=== PATIENT | female | born 1980 | race Caucasian/White ===

== ENCOUNTER 2019-12-17 16:30 | Day surgery (SDC) | payer OTHER ==
[~2019-12-17] VITALS: Ht 154.9 cm; Wt 47.1 kg
[~2019-12-17 16:30] MED LIST: LIDOCAINE 1% SDV 30ML VIAL As Ordered ONE
[2019-12-17] MEDS ORDERED: propofoL 200 MG/20 ML VIAL As Ordered ONE (16:52)
[2019-12-17] MEDS ORDERED: LIDOCAINE 2% 100MG/5ML SDV (FOR ANES.) As Ordered ONE (16:52)
[2019-12-17] MEDS ORDERED: MIDAZOLAM INJ 2MG/2ML VIAL (J2250 PER 1MG) As Ordered ONE (16:52)
[2019-12-17] MEDS ORDERED: fentaNYL 100 MCG/2 ML INJECTION (J3010) As Ordered ONE (16:52)
[2019-12-17] MEDS ORDERED: ACETAMINOPHEN *IV* 1,000 MG IV ONE ×2 (17:00)
[2019-12-17 17:26] LABS: HEMATOCRIT 39.8 % (36.0-47.0); HEMOGLOBIN 13.6 g/dl (12.0-15.5); MEAN CORPUSCULAR HEMOGLOBIN 30.2 pg (27.0-33.0); MEAN CORPUSCULAR HGB CONC 34.2 g/dl (32.0-36.5); MEAN CORPUSCULAR VOLUME 88.4 fl (80.0-96.0); PLATELET COUNT, AUTOMATED 325 10^3/uL (150-450); WHITE BLOOD COUNT 7.1 10^3/uL (4.0-10.0)
[2019-12-17] MEDS ORDERED: DOXYCYCLINE HYCLATE 100 MG in D5W MINI-BAG PLUS 100 ML IV ONE ×2 (17:30→18:30)
[2019-12-17 17:50] LABS: ALBUMIN 3.9 GM/DL (3.2-5.2); ALT/SGPT 13 U/L (12-78); BILIRUBIN,TOTAL 0.6 MG/DL (0.2-1.0); BLOOD UREA NITROGEN 7 MG/DL (7-18); CALCIUM LEVEL 8.8 MG/DL (8.5-10.1); CARBON DIOXIDE LEVEL 25 MEQ/L (21-32); CHLORIDE LEVEL 107 MEQ/L (98-107); CREATININE FOR GFR 0.53 MG/DL (0.55-1.30); GLOMERULAR FILTRATION RATE > 60.0 (>60); GLUCOSE, FASTING 88 MG/DL (70-100); POTASSIUM SERUM 3.6 MEQ/L (3.5-5.1); SODIUM LEVEL 136 MEQ/L (136-145); TOTAL PROTEIN 7.4 GM/DL (6.4-8.2)
[2019-12-17] MEDS ORDERED: ONDANSETRON 4MG/2ML VIAL As Ordered ONE (17:51)
[2019-12-17] MEDS ORDERED: dexameTHASONE 4 MG/ML 1ML VIAL (J1100 PER 1MG) As Ordered ONE (17:51)
[2019-12-17] MEDS ORDERED: ACETAMINOPHEN 1000MG 100ML IV BTL (OFIRMEV) (J0131 PER 10MG) As Ordered ONE (17:52)
[2019-12-17] MEDS ORDERED: SILVER NITRATE APPLICATOR As Ordered ONE ×2 (18:02→18:16)
--- NOTE | 2019-12-17 18:48 | ROOPDOC ---
[facility] Report Of Operation Report of Operation DATE OF PROCEDURE: 12/17/19 PREPROCEDURE DIAGNOSES: missed POSTPROCEDURE DIAGNOSES: missed PROCEDURE: suction dilation and curettage SURGEON: Wang Marcus DO METHODS SPECIALIST: none ANESTHESIA: LMA ESTIMATED BLOOD LOSS: Approximately 100 mL. COMPLICATIONS: none. REMARKS: none PROCEDURE NOTE: The risks, benefits, and alternatives of the procedure were discussed and written consent was obtained. The patient was taken to the OR where she underwent anesthesia with an LMA. She was positioned in low lithotomy in the yellow fins with her arms out. The vagina and perineum were prepped and draped in a sterile fashion. A final time out was performed. An exam under anesthesia was performed and the uterus was noted to be 7wk size, anteverted, and mobile. No adenxal masses were palpable. A weighted speculum was placed in the vagina and the anterior lip of the cervix was grasped with a single tooth tenaculum. The cervix was noted to be friable. The cervix was then dilated to 18F with hanks dilators. An 8mm suction curette was tested and the suction was in the green zone. The curette was then introduced to the fundus and via 360 deg rotation in multiple passes suction was performed until no further debris were noted in the tubing. A non-serated endometrial curette was then passed 360 deg to palpate if any further suction was needed. Gentle cry was palpated 360 deg with the exception of the right lower uterus where a fibroid could be palpated. The bleeding from the uterus was noted to be scant. On exam the uterus was firm and 5 weeks size. The tenaculum was removed and the puncture site hemostatic with silver nitrate. The speculum was removed. The bladder was drained. The sponge, lap and needle counts were correct x2. There were no complications. The patient was transferred to the PACU in stable condition. WANG MARCUS DO Dec 17, 2019 18:48
[2019-12-17 19:50] VITALS: BP 103/70
--- NOTE | 2019-12-17 19:58 | IPNPDOC ---
Progress Note Date of Service: Dec 17, 2019 Day#: 0 Progress Note To whom it may concern; Leanne Merchant was admitted to the hospital on [id number] for a procedure and should receive 7 days of convalescent leave starting [id number]. If you have any questions please contact me at [phone]. Sincerely, Dr. Wang Joel DO, [facility], , [facility] [address] [place] [address] VS, I&O, 24H, [facility] Vital Signs/I&O Vital Signs Date Time Temp Pulse Resp B/P (MAP) Pulse Ox O2 Delivery O2 Flow Rate FiO2 12/17/19 19:05 98.5 84 18 106/66 (79) 100 Room Air Laboratory Data 24H LABS Laboratory Tests 2 12/17/19 17:05: Nucleated Red Blood Cells % (auto) 0.0, Anion Gap 4L, Glomerular Filtration Rate > 60.0, Calcium Level 8.8, Total Bilirubin 0.6, Aspartate Amino Transf (AST/SGOT) 11, Alanine Aminotransferase (ALT/SGPT) 13, Alkaline Phosphatase 53, Total Protein 7.4, Albumin 3.9, Albumin/Globulin Ratio 1.1L CBC/BMP Laboratory Tests 12/17/19 17:05 Microbiology Microbiology 12/17/19 Respiratory Virus Panel (PCR) (MARY) - Final, Complete WANG JOEL DO Dec 17, 2019 19:58
== END 2019-12-17 20:02 | disposition home or self-care (01) ==
LOC: M SDC 16:30
PROVIDERS: ATTEND Obstetrics & Gynecology
DX: O02.1 Missed abortion (principal)
CPT/HCPCS: 36415; 59820; 80053; 85027; 86850; 86900; 86901; 87486; 87581; 87633; 87798; 88305; J0131; J1100; J2250; J2405; J3010

== ENCOUNTER → 2020-06-09 | Outpatient (CLI) | payer OTHER ==
[~2020-06-09] MED LIST changes: +ISOVUE-370 76% 100ML VIAL As Ordered ONE; -LIDOCAINE 1% SDV 30ML VIAL As Ordered ONE
--- NOTE | 2020-06-09 12:45 | ROOPDOC ---
[facility] Report Of Operation Report of Operation DATE OF PROCEDURE: 06/09/20 PRE-PROCEDURE DIAGNOSIS: 1) Infertility POST-PROCEDURE DIAGNOSIS: Same PHYSICIAN PERFORMING PROCEDURE: Wang Marcus DO CONSENT: The HSG procedure, indication, risks, and benefits were discussed with the patient and informed written consent was obtained. PATIENT COUNSELLED IN REGARDS TO HSG RISKS AND BENEFITS TO INCLUDE INFECTION, DISRUPTION OF , BLEEDING, AND PAIN. FINAL TIME OUT PERFORMED IMMEDIATELY PRIOR TO HSG. PROCEDURE: STERILE SPECULUM PLACED CERVIX CLEANSED WITH BETADINE TRIPLE SWAB TENACULUM UTILIZED (YES) HSG CATHETER PASSED, BALLOON INFLATED APPROX 10mL OF ISOVUE CONTRAST WAS INFUSED AP AND OBLIQUE IMAGES WERE OBTAINED PRELIMINARY FINDINGS: 1) UTERINE FINDINGS NORMAL 2) LEFT FALLOPIAN TUBE PATENT 3) RIGHT FALLOPIAN TUBE PATENT PATIENT TOLERATED THE PROCEDURE WELL DISCHARGED TO HOME WITH PRECAUTIONS ANTIBIOTICS RECOMMENDED: NO COMPLICATIONS: NONE DISCHARGE INSTRUCTIONS GIVEN PATIENT TO F/U WITH ORDERING PROVIDER FOR FINAL IMPRESSION AND CLINICAL CORRELAT ION APPROX TIME: 10 MIN COUNSELLING 20 MIN IN PROCEDURE WANG MARCUS DO Jun 09, 2020 12:45
--- NOTE | 2020-06-09 13:53 | REP ---
INDICATION: INFERTILITY. COMPARISON: None. TECHNIQUE: The endometrium was cannulated and contrast was injected by the attending medical accounts receivable specialist Dr. Joel. Fluoroscopic spot films were acquired by DESTINEY Martin, under the direct supervision of Dr. Hernandez. Images reviewed prior with Dr. Hernandez to dictation. FINDINGS: Fluoroscopy spot radiographs document filling of a normal endometrial cavity. There is normal isthmic and ampullary fallopian tube opacification, and bilateral tubal patency was documented. IMPRESSION: Normal hysterosalpingogram with bilateral tubal patency documented. 0.6 minutes of fluoroscopy time was utilized for this procedure. Some fluoroscopic images are performed with last image hold technology. These images require no additional radiation. <Electronically signed by Salima Gomez > 06/09/20 [id number] <Electronically signed by Janes Hernandez > 06/09/20 [id number]
== END ==
LOC: M RADPRO 11:26
PROVIDERS: ATTEND Obstetrics & Gynecology
DX: N97.9 Female infertility, unspecified (principal)
CPT/HCPCS: 58340; 74740; Q9967

== ENCOUNTER → 2020-08-11 | Outpatient (REF) | LOC: M LAB REF 11:28 | PROVIDERS: ATTEND Obstetrics & Gynecology Reproductive Endocrinology | DX: N97.9 Female infertility, unspecified (principal) ==

== ENCOUNTER → 2020-09-26 | Outpatient (CLI) | payer OTHER ==
[~2020-09-26] MED LIST changes: -ISOVUE-370 76% 100ML VIAL As Ordered ONE; +MUCI120T PO
[2020-09-26 08:21] LABS: HCG, SERUM QUANTITATIVE < 1.0 MIU/ML; THYROID STIMULATING HORMONE 0.392 uIU/ML (0.358-3.740)
[2020-09-26 09:34] LABS: ESTRADIOL 22.6 PG/ML; LUTEINIZING HORMONE 5.4 mIU/mL
[2020-09-26 09:35] LABS: FOLLICLE STIMULATING HORMONE 12.4 mIU/mL
== END ==
LOC: M LAB 07:23
PROVIDERS: ATTEND Obstetrics & Gynecology Reproductive Endocrinology
DX: E28.9 Ovarian dysfunction, unspecified (principal)

== ENCOUNTER → 2020-10-03 | Outpatient (CLI) | payer OTHER ==
[2020-10-03 07:29] LABS: ESTRADIOL 70.4 PG/ML; LUTEINIZING HORMONE 5.1 mIU/mL; PROGESTERONE 1.22 NG/ML
== END ==
LOC: M LAB 06:12
PROVIDERS: ATTEND Obstetrics & Gynecology Reproductive Endocrinology
DX: E28.9 Ovarian dysfunction, unspecified (principal)

== ENCOUNTER → 2020-10-14 | Outpatient (CLI) | payer OTHER ==
[2020-10-14 10:38] LABS: ESTRADIOL 744.4 PG/ML; PROGESTERONE 17.23 NG/ML
== END ==
LOC: M LAB 06:39
PROVIDERS: ATTEND Obstetrics & Gynecology Reproductive Endocrinology
DX: Z31.49 Encounter for other procreative investigation and testing (principal)

== ENCOUNTER → 2020-10-21 | Outpatient (CLI) | payer OTHER ==
[2020-10-21 09:03] LABS: PROGESTERONE 30.02 NG/ML
== END ==
LOC: M LAB 06:40
PROVIDERS: ATTEND Obstetrics & Gynecology Reproductive Endocrinology
DX: Z32.00 Encounter for pregnancy test, result unknown (principal)

== ENCOUNTER → 2020-10-23 | Outpatient (CLI) | payer OTHER ==
[2020-10-23 07:30] LABS: THYROID STIMULATING HORMONE 1.25 uIU/ML (0.358-3.740)
[2020-10-23 11:18] LABS: ESTRADIOL 584.9 PG/ML; PROGESTERONE 31.28 NG/ML
== END ==
LOC: M LAB 06:30
PROVIDERS: ATTEND Obstetrics & Gynecology Reproductive Endocrinology
DX: Z32.01 Encounter for pregnancy test, result positive (principal)

== ENCOUNTER → 2020-10-30 | Outpatient (CLI) | payer OTHER ==
[2020-10-30 07:50] LABS: THYROID STIMULATING HORMONE 1.02 uIU/ML (0.358-3.740)
[2020-10-30 08:30] LABS: ESTRADIOL 759.9 PG/ML; PROGESTERONE 29.76 NG/ML
== END ==
LOC: M LAB 06:42
PROVIDERS: ATTEND Obstetrics & Gynecology Reproductive Endocrinology
DX: O09.00 Supervision of pregnancy with history of infertility, unspecified trimester (principal); Z3A.00 Weeks of gestation of pregnancy not specified

== ENCOUNTER → 2020-11-06 | Outpatient (CLI) | payer OTHER ==
[2020-11-06 07:53] LABS: THYROID STIMULATING HORMONE 0.551 uIU/ML (0.358-3.740)
[2020-11-06 09:12] LABS: PROGESTERONE 28.65 NG/ML
[2020-11-06 09:13] LABS: ESTRADIOL 1342.9 PG/ML
== END ==
LOC: M LAB 06:17
PROVIDERS: ATTEND Obstetrics & Gynecology Reproductive Endocrinology
DX: O09.00 Supervision of pregnancy with history of infertility, unspecified trimester (principal)

== ENCOUNTER 2021-06-05 13:59 | Inpatient (IN) | payer OTHER ==
[2021-06-05] VITALS (17 sets, daily range): BP systolic 107–140; BP diastolic 64–79
[~2021-06-05] VITALS: Ht 154.9 cm; Wt 67.0 kg
[2021-06-05] MEDS ORDERED: UNIS25TA3 PO (14:25)
[2021-06-05] MEDS ORDERED: PRENTAB9 PO (14:25)
[2021-06-05] MEDS ORDERED: FAMO20TA PO (14:25)
[2021-06-05] MEDS ORDERED: FERR325T81 PO (14:25)
[2021-06-05] MEDS ORDERED: ACET500P3 PO (14:27)
[2021-06-05] MEDS ORDERED: PENICILLIN G POTASSIUM IV 5 MU in D5W MINI-BAG PLUS 100 ML IV STA (14:54)
[2021-06-05] MEDS ORDERED: METHYLERGONOVINE MALEATE 0.2 MG/ML VIAL (J2210) IM PRN (14:55)
[2021-06-05] MEDS ORDERED: LIDOCAINE 1% MDV 20ML VIAL INFIL PRN (14:55)
[2021-06-05] MEDS ORDERED: OXYTOCIN DRIP 30 UNITS in IV 1 EA IV PRN (14:55)
[2021-06-05] MEDS: LR 1,000 ML IV SCH ×3 (15:22→22:56)
[2021-06-05 15:23] LABS: HEMATOCRIT 34.5 % (36.0-47.0); HEMOGLOBIN 11.5 g/dl (12.0-15.5); MEAN CORPUSCULAR HGB CONC 33.3 g/dl (32.0-36.5); MEAN CORPUSCULAR VOLUME 90.1 fl (80.0-96.0); PLATELET COUNT, AUTOMATED 261 10^3/uL (150-450); RED BLOOD COUNT 3.83 10^6/uL (4.00-5.40); WHITE BLOOD COUNT 8.5 10^3/uL (4.0-10.0)
[2021-06-05] MEDS ORDERED: HOME MED LIST COMPLETE! XX SCH (16:05)
[2021-06-05] MEDS: BETAMETHASONE SOLUSPAN 6MG/ML 5ML VIAL (J0702 PER 3MG) IM SCH (16:48)
[2021-06-05] MEDS: PENICILLIN G POTASSIUM IV 2.5 MU in IV 1 EA IV SCH ×2 (19:11→23:15)
[2021-06-05] MEDS ORDERED: PROMETHAZINE INJ 25 MG/ML VIAL (J2550) IV PRN (19:25)
[2021-06-05] MEDS ORDERED: BUTORPHANOL 2 MG/ML INJ (J0595) IV PRN (19:25)
[2021-06-05] MEDS ORDERED: FENTANYL 2MCG/ML ROPIVACAINE 0.2% IN 0.9% NACL 100ML IVBAG As Ordered ONE (22:33)
[2021-06-05] MEDS ORDERED: EPIDURAL/PCA KEYS XX PRN (22:55)
[2021-06-05] MEDS ORDERED: LACTATED RINGER'S 1000 ML IV PRN (22:55)
[2021-06-05] MEDS ORDERED: REFRIGERATOR IV KEYS XX PRN (22:55)
[2021-06-05] MEDS ORDERED: ONDANSETRON 4MG/2ML VIAL IV PRN (22:55)
[2021-06-05] MEDS ORDERED: EPIDURAL COMMENT XX SCH (22:55)
[2021-06-05] MEDS ORDERED: NALOXONE INJ 0.4MG/1ML VIAL (J2310 PER 1MG) IV PRN (22:55)
[2021-06-05] MEDS ORDERED: diphenhydrAMINE 50MG/ML VIAL (J1200) IV PRN (22:55)
[2021-06-05] MEDS: FENTANYL/ROPIVACAINE/NACL BAG 100 ML EPIDURAL SCH (22:56)
[2021-06-06] VITALS (61 sets, daily range): BP systolic 87–127; BP diastolic 48–87
[2021-06-06] MEDS: ePHEDrine SULFATE 25 MG/5 ML(5MG/ML) SYRINGE IV PRN ×3 (00:34→00:41)
[2021-06-06] MEDS: PENICILLIN G POTASSIUM IV 2.5 MU in IV 1 EA IV SCH ×3 (03:34→11:45)
[2021-06-06] MEDS: LR 1,000 ML IV SCH ×2 (06:49→14:49)
[2021-06-06] MEDS ORDERED: OXYTOCIN DRIP 30 UNITS in IV 1 EA IV SCH ×2 (10:35→17:15)
[2021-06-06] MEDS: FENTANYL/ROPIVACAINE/NACL BAG 100 ML EPIDURAL SCH (10:39)
[2021-06-06] MEDS ORDERED: ceFAZolin 2 GM/D5W 50 ML IV BAG (J0690 PER 500MG) As Ordered ONE (14:34)
[2021-06-06] MEDS ORDERED: AZITHROMYCIN INJ 500MG VIAL As Ordered ONE (14:35)
[2021-06-06] MEDS ORDERED: BICITRA 30ML SOLN UDC As Ordered ONE (14:35)
[2021-06-06] MEDS ORDERED: AZITHROMYCIN INJ 500 MG, VIAL MATE ADAPTER 1 EACH in NS 250 ML IV ONE (14:35)
[2021-06-06] MEDS ORDERED: BICITRA 30ML SOLN UDC PO ONE (14:35)
[2021-06-06] MEDS ORDERED: ceFAZolin SOD 2 GM in IV 1 EA IV ONE (14:35)
[2021-06-06] MEDS ORDERED: MORPHINE PRES-FREE INJ 10 MG/10 ML VIAL (J2274) As Ordered ONE (15:08)
[2021-06-06] MEDS ORDERED: LIDOCAINE 2% W/EPINEPHRINE 20ML VIAL **PRES FREE As Ordered ONE (15:08)
[2021-06-06] MEDS ORDERED: ONDANSETRON 4MG/2ML VIAL As Ordered ONE (15:08)
[2021-06-06] MEDS ORDERED: OXYTOCIN 30 UNITS IN 0.9% NaCl 500ML IV BAG (J2590) As Ordered ONE (15:08)
[2021-06-06] MEDS ORDERED: KETOROLAC 60MG 2ML VIAL As Ordered ONE (15:39)
[2021-06-06] MEDS ORDERED: diphenhydrAMINE 50MG/ML VIAL (J1200) IV PRN (15:40)
[2021-06-06] MEDS ORDERED: METOCLOPRAMIDE INJ 10MG/2ML VIAL (J2765 PER 1) IV PRN (15:40)
[2021-06-06] MEDS ORDERED: ONDANSETRON 4MG/2ML VIAL IV PRN ×2 (15:40→16:50)
[2021-06-06] MEDS ORDERED: NALBUPHINE HCL 10 MG/ML AMP (J2300) IV PRN ×2 (15:40→16:55)
[2021-06-06] MEDS ORDERED: NALOXONE INJ 0.4MG/1ML VIAL (J2310 PER 1MG) IV PRN ×2 (15:40)
[2021-06-06 15:53] LABS: CORD GAS ABE V -4.3; CORD GAS HCO3 V 20.6 MEQ/L; CORD GAS O2 SAT V 77.9 %; CORD GAS PCO2 V 37.3 mmHg; CORD GAS PH V 7.359 UNITS; CORD GAS PO2 V 32.4 mmHg; CORD GAS SBC V 20.5 MEQ/L; CORD GAS TCO2 V 21.7 MEQ/L
[2021-06-06 15:57] LABS: CORD GAS ABE A -5.4; CORD GAS HCO3 A 21.1 MEQ/L; CORD GAS O2 SAT A 86.7 %; CORD GAS PCO2 A 45.4 mmHg; CORD GAS PH A 7.286 UNITS; CORD GAS SBC A 19.8 MEQ/L; CORD GAS TCO2 A 22.5 MEQ/L
[2021-06-06] MEDS ORDERED: SIMETHICONE 80MG CHEW TAB PO PRN (16:50)
[2021-06-06] MEDS ORDERED: MEASLES,MUMPS,RUBELLA VACCINE INJ (MMR-II) (90707) SC SCH (16:50)
[2021-06-06] MEDS ORDERED: RHOGAM 300 MCG (1500 IU) INJ (J2790) IM SCH (16:50)
[2021-06-06] MEDS ORDERED: PROMETHAZINE 25 MG TAB PO PRN (16:50)
[2021-06-06] MEDS ORDERED: oxyCODONE 5MG TAB PO PRN ×2 (16:50)
[2021-06-06] MEDS ORDERED: LR 1,000 ML IV SCH ×2 (16:55→17:30)
[2021-06-06] MEDS: BETAMETHASONE SOLUSPAN 6MG/ML 5ML VIAL (J0702 PER 3MG) IM SCH (16:59)
[2021-06-06] MEDS ORDERED: fentaNYL 100 MCG/2 ML INJECTION As Ordered ONE (17:17)
[2021-06-06] MEDS: fentaNYL 100 MCG/2 ML INJECTION IV PRN ×2 (17:20→17:58)
[2021-06-06] MEDS: ACETAMINOPHEN 500 MG TAB PO SCH (18:59)
[2021-06-06] MEDS: FAMOTIDINE 20 MG TAB PO SCH (22:28)
[2021-06-06] MEDS: DOCUSATE SODIUM 100MG CAPSULE PO SCH (22:28)
[2021-06-06] MEDS: KETOROLAC 30 MG/ML 1ML VIAL IV SCH (22:29)
[2021-06-07] MEDS: ACETAMINOPHEN 500 MG TAB PO SCH ×5 (00:14→23:58)
[2021-06-07 02:00] VITALS: BP 92/54
[2021-06-07] MEDS: KETOROLAC 30 MG/ML 1ML VIAL IV SCH ×2 (04:42→10:33)
[2021-06-07 06:00] VITALS: BP 100/58
[2021-06-07 07:52] LABS: HEMATOCRIT 32.8 % (36.0-47.0); HEMOGLOBIN 10.7 g/dl (12.0-15.5); MEAN CORPUSCULAR HEMOGLOBIN 30.2 pg (27.0-33.0); MEAN CORPUSCULAR HGB CONC 32.6 g/dl (32.0-36.5); MEAN CORPUSCULAR VOLUME 92.7 fl (80.0-96.0); PLATELET COUNT, AUTOMATED 234 10^3/uL (150-450); RED BLOOD COUNT 3.54 10^6/uL (4.00-5.40); WHITE BLOOD COUNT 15.1 10^3/uL (4.0-10.0)
[2021-06-07] MEDS ORDERED: PRENATAL VITAMINS CHEWABLE TABLET PO SCH (09:00)
[2021-06-07 10:00] VITALS: BP 96/51
[2021-06-07] MEDS: DOCUSATE SODIUM 100MG CAPSULE PO SCH ×2 (10:33→20:33)
[2021-06-07] MEDS: PRENATAL VITAMINS CHEWABLE TABLET PO SCH (10:34)
[2021-06-07] MEDS: FAMOTIDINE 20 MG TAB PO SCH ×2 (10:34→20:33)
[2021-06-07 14:00] VITALS: BP 98/51
[2021-06-07 17:55] VITALS: BP 103/64
[2021-06-07] MEDS: IBUPROFEN 800 MG TAB PO SCH (18:26)
[2021-06-07 22:00] VITALS: BP 100/60
[2021-06-08 02:00] VITALS: BP 98/61
[2021-06-08] MEDS: IBUPROFEN 800 MG TAB PO SCH ×2 (02:32→09:27)
[2021-06-08 06:00] VITALS: BP 106/66
[2021-06-08] MEDS: ACETAMINOPHEN 500 MG TAB PO SCH ×2 (06:04→12:01)
[2021-06-08] MEDS: PRENATAL VITAMINS CHEWABLE TABLET PO SCH (09:26)
[2021-06-08] MEDS: FAMOTIDINE 20 MG TAB PO SCH (09:26)
[2021-06-08] MEDS: DOCUSATE SODIUM 100MG CAPSULE PO SCH (09:26)
== END 2021-06-08 13:05 | disposition home or self-care (01) | DRG 773 ==
LOC: M LDO 13:59 → M LDI 14:32 → M OBS 06-06 18:39
PROVIDERS: ADMIT Obstetrics & Gynecology; ATTEND Obstetrics & Gynecology
PROC: 10D00Z1 Extraction of Products of Conception, Low, Open Approach (ICD-10-PCS; principal; 2021-06-06 14:51)
DX: O42.013 Preterm premature rupture of membranes, onset of labor within 24 hours of rupture, third trimester (principal); Z37.0 Single live birth; Z3A.36 36 weeks gestation of pregnancy; O09.523 Supervision of elderly multigravida, third trimester; O34.211 Maternal care for low transverse scar from previous cesarean delivery; O32.4XX0 Maternal care for high head at term, not applicable or unspecified

== ENCOUNTER → 2021-11-17 | Outpatient (CLI) | payer OTHER ==
[~2021-11-17] MED LIST changes: +ACET500P3 PO; +FAMO20TA PO; +FERR325T81 PO; +MULT-90 PO; +PRENTAB9 PO; +UNIS25TA3 PO
== END ==
LOC: M WHC 06:47
PROVIDERS: ATTEND Obstetrics & Gynecology
DX: Z12.31 Encounter for screening mammogram for malignant neoplasm of breast (principal); Z53.9 Procedure and treatment not carried out, unspecified reason

== ENCOUNTER → 2022-08-18 | Outpatient (CLI) | payer OTHER | LOC: M WHC 08:08 | PROVIDERS: ATTEND Obstetrics & Gynecology | DX: Z12.31 Encounter for screening mammogram for malignant neoplasm of breast (principal); Z80.3 Family history of malignant neoplasm of breast ==